=== PATIENT | female | born 1945 | race Caucasian/White ===

== ENCOUNTER → 2018-07-21 | Outpatient (CLI) | payer BC ==
[2015-08-10 08:32] VITALS: BP 60/66
[~2018-07-21] MED LIST: ACET325T9 PO; AMLO2.5T5 PO; ASPI-482 PO; ASPI325T11 PO; CALC-98 PO; CELE200C PO; DOCU100C28 PO; HYDR-2145 PO; LISI10TA2 PO; LORA0.5T PO; LYSI500T3 PO; METO-239 PO; NAPR220C4 PO; OMEG500C PO; OMEP20CA10 PO; ONDA4TAB7 PO; OXYC1TAB15 PO; SIMV20TA3 PO; TRAM50TA PO; [UNRECOGNIZED DRUG - OTHER]
--- NOTE | 2018-07-21 12:10 | KCIC ---
MRI Lumbar Spine without contrast History: Low back pain, right hip pain into the leg Technique: Multiplanar, multi sequential noncontrast MR imaging was performed of the lumbar spine. Comparison: None Findings: Lumbar vertebral body stature is overall maintained, small Schmorl's nodes at L4-5 and L3-L4 and inferiorly of L1. There is multilevel advanced degenerative disc disease L2-3 through L5-S1 and to lesser degree at L1-L2. There is fairly prominent L5-S1 endplate edema and minimally L2-3 through L4-5, no fluid in the intervertebral disc spaces. There is also other degenerative endplate change variably L2-3 through L5-S1. 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 There is mild dextroscoliosis centered near L3, very mild right lateral subluxation L3 relative L4. There is small hemangioma T12. There is other heterogeneity of marrow signal which may be a component of senescent change. There is a T2 hyperintense lesion of the visualized left kidney about 2 cm in size, statistically most likely a cyst. L1-L2: There is minimal disc osteophyte complex and superimposed broad shallow bulge, mild indentation upon the ventral thecal sac greater in the far left lateral recess. There is very mild narrowing of the far left lateral recess. There is mild buckling of the ligamentum flavum and facet degenerative change. There is mild narrowing of the left neural foramen, right neural foramen adequate. L2-L3: There is broad shallow disc osteophyte complex with mild indentation upon the ventral thecal sac greater in the left lateral recess without significant neural impingement or spinal stenosis. There is mild buckling of the ligamentum flavum and facet degenerative change. There is mild narrowing of the inferior left neural foramen, right neural foramen adequate. L3-L4: There is a broad shallow posterior disc osteophyte complex, indentation upon the ventral thecal sac somewhat greater in the far left lateral recess. There is mild prominence of posterior epidural fat. There is mild buckling of the ligamentum flavum and facet hypertrophic change. Combination of findings results in lvhf-cy-iojmtxof narrowing of the far left lateral recess. There is mild narrowing of the right neural foramen. There is moderate to severe narrowing of the left neural foramen, disc osteophyte complex contacting the undersurface of exiting left L3 nerve root in the neural foramen and proximal extraforaminal region. L4-L5: There is shallow disc osteophyte complex and superimposed bulge/broad protrusion, mild indentation upon the ventral thecal sac greater in the far right lateral recess. There is mild narrowing of the far right lateral recess with light contact of the descending right L5 nerve root. There is voaq-dv-otuuvhsl facet degenerative change on the right, minimally on the left. There is mild buckling of the ligamentum flavum. Left neural foramen is adequate. There is moderate narrowing of the right neural foramen by disc osteophyte complex and facet. L5-S1: There is broad protrusion/mostly contained extrusion greatest centrally and in the right lateral recess about 6 to 7 mm AP by 8 mm CC by about 13 mm transverse. There is indentation upon the ventral thecal sac greater in the right lateral recess, impingement of the descending right S1 nerve root in the right lateral recess with overall moderate narrowing of the far right lateral recess. There is mild facet degenerative change, minimal fluid in the facet articulations bilaterally. There is moderate to severe right greater than left neural foramina compromise. Impression: 1. There is right lateral recess stenosis at L5-S1 by protrusion/contained extrusion with impingement of the descending right S1 nerve root. There is gwng-oh-hkrwpswt left lateral recess stenosis as described at L3-4, mild right lateral recess stenosis L4-5. 2. There is multilevel advanced degenerative disc disease greatest L2-3 through L5-S1 with variable degenerative endplate change, also endplate edema greatest at L5-S1 more likely to be reactive/degenerative in etiology. 3. There is multilevel lumbar neural foramina compromise, more significant narrowing bilaterally at L5-S1 and on the left at L3-4 and to a somewhat lesser degree on the right at L4-L5. 4. There is mild lumbar dextroscoliosis. There is mild right lateral subluxation of L3 relative to L4. 5. There is likely cyst of the left kidney. Electronically signed by: Demond Estevez MD (07/21/2018 12:07 PM) [facility]
== END | disposition home or self-care (01) ==
LOC: KCIC MRI 10:40
PROVIDERS: ATTEND Psychiatry & Neurology Neurology with Special Qualifications in Child Neurology
DX: M48.07 Spinal stenosis, lumbosacral region (principal); M51.27 Other intervertebral disc displacement, lumbosacral region; M51.37 Other intervertebral disc degeneration, lumbosacral region; M53.2X6 Spinal instabilities, lumbar region; M41.86 Other forms of scoliosis, lumbar region; M25.78 Osteophyte, vertebrae; D18.09 Hemangioma of other sites
CPT/HCPCS: 72148

== ENCOUNTER → 2019-02-11 | Outpatient (CLI) | payer BC ==
[2015-08-10 08:32] VITALS: BP 60/66
[~2019-02-11] MED LIST changes: +OMEP-229 PO; -OMEP20CA10 PO; +SIMV20TA18 PO; -SIMV20TA3 PO
--- NOTE | 2019-02-11 12:38 | RAD ---
MR#: [id number] Date of Study: 02/11/2019 Ordering Physician: ARIAS SPEAR, Referring Physician: SHANNA SIBLEY Tech: CLAU Jasmine ARRT (Awais) (N) APPROVED REPORT Test Type: Exercise Stress Nurse/Tech: Ramírez DEL REAL Test Indications: SOB with exertion, Unstable Angina Cardiac History: HTN, Hyperlipidemia, See EMR. Medications: ASA 81mg QD, See EMR. Medical History: X-smoker=Quit 1979, See EMR. Resting ECG: SR w/ PVCs & PACs. Resting Heart Rate: 70 bpm Resting Blood Pressure: 138/71mmHg Pretest Chest Pain: No chest pain Nurse/Tech Notes Lungs CTA, Heart tones regular. Consent: The procedure was explained to the patient in lay terms. Informed consent was witnessed. Arnulfo eout was entered into [employer]. History and Stress Test performed by CLAU Jasmine ARRT (R) (N) Stress Symptoms Dyspnea; Pt denies any chest pain. POST EXERCISE Reason for Termination: Reached target heart rate Target HR: Yes Max HR: 143 bpm 117% of Maximum Predicted HR: 122 bpm Exercise duration: 03:16 min:sec, 1 Stage Exercise capacity: 4.6METs Max Blood Pressure: 182/64mmHg Blood Pressure response to exercise: Abnormal increase in blood pressure during stress. Heart Rate response to exercise: WNL Chest Pain: No. Arrhythmia: Yes. Few PVCs and PACs during stress and recovery. ST Change: No. INTERPRETATION Stress EKG Conclusion: No evidence of stress induced EKG changes to suggest ischemia. Imaging Protocol IMAGE PROTOCOL: Rest Tc-99m/stress Tc-99m 1 day Rest: Stress: Viability: Radiopharm.Tc99m SgrdajdsfYf98p Sestamibi Dose10.2mCi 33mCi Img Date 02/11/2019 02/11/2019 Inj-Img Mzff86tsi. 90min. Rest Admin Site:IV - Right AntecubitalAdministrator:CLAU Jasmine ARRT (R)(N) Stress Admin Site: IV - Right AntecubitalAdministrator: Marzena Rizvi, NMTCB, ARRT (R)(N) STRESS DATA End Diast. Vol.63.0mlAv. Heart Rate64.0bpm End Syst. Vol.9.0mlCO Index BSA0.0L/min Myocardial Twii813.0gEject. Paljskqd15.0% Stress Rates Pk. Fill Rate3.53EDV/secLVtime Pk. Fill 234.76msec Pk. Empty Rate3.82ESV/secLVtime Pk. Vahsw509.41msec 03/26 Pk. Fill0.92EDV/sec Stress Scores Regional WT0.00Summed WT4.00 Regional WM0.00Summed WM0.00 The rest and stress images show normal perfusion, normal contraction and thickening. LV Perf. Quant 17 Seg. SSS0.00 17 Seg. SRS1.00 17 Seg. SDS0.00 Stress Defect Extent (% LAD)0.00Rest Defect Extent (% LAD)0.00Rev. Defect Extent (% LAD)0.00 Stress Defect Extent (% LCX) 0.00Rest Defect Extent (% LCX)0.00Rev. Defect Extent (% LCX)0.00 Stress Defect Extent (% RCA)0.00Rest Defect Extent (% RCA)0.00Rev. Defect Extent (% RCA)0.00 Stress Defect Extent (% MARGARET)0.00Rest Defect Extent (% MARGARET)0.00Rev. Defect Extent (% MARGARET)0.00 Other Information Quality:Average Risk Assessment: Low Risk Conclusion 1. No evidence of EKG changes with stress testing. 2. Normal perfusion at stress/rest. 3. Low risk study. 4. EF > 60%. Signed by : Arias Spear, Electronically Approved : 02/11/2019 12:38:09
--- NOTE | 2019-03-05 09:40 | CARD ---
MR#: [id number] Account#: Accession#: Date of Study: 02/11/2019 Ordering Physician: Maren: Kareen Pelayo APPROVED REPORT EXAM: Two-dimensional and M-mode echocardiogram with Doppler and color Doppler. Other Information Quality : AverageHR: 62bpm INDICATION Unstable Angina 2D DIMENSIONS RVDd2.2 (2.9-3.5cm)Left Atrium(2D)3.3 (1.6-4.0cm) IVSd1.3 (0.7-1.1cm)Aortic Root(2D)2.3 (2.0-3.7cm) LVDd3.9 (3.9-5.9cm)LVOT Diameter1.8 (1.8-2.4cm) PWd0.8 (0.7-1.1cm)LVDs1.9 (2.5-4.0cm) FS (%) 53.6 %SV57.7 ml LVEF(%)85.0 (>50%) Aortic Valve AoV Peak Hugh.364.7cm/sAoV VTI94.0cm AO Peak GR.53.2mmHgLVOT VTI 34.46cm AO Mean GR.30mmHgAI P 1/2 Mmsp31os Mitral Valve MV E Iotqjtkn99.2cm/sMV E Peak Gr.7mmHg MV DECEL [id number] A Tdbbrfef456.0cm/s MV E Mean Gr.3mmHgE/A Ratio0.8 TDI Lateral E' P. V7.14cm/sMedial E' P. V5.02cm/s E/Lateral E'13.8E/Medial E'19.6 Tricuspid Valve TR P. Ebqwzvtu071he/sRAP IKCWXHHY9bvLx TR Peak Gr.38ioPoIXWN55ovVa Pulmonary Vein S1 Thiqqpde60.9cm/sS2 Nygygmmn66.06cm/s D2 Wpnrypvv18.1cm/s LEFT VENTRICLE The left ventricle is normal size. There is mild septal left ventricular hypertrophy. The left ventri cular systolic function is normal and the ejection fraction is within normal range. The Ejection Frac tion is 60-65%. There is normal LV segmental wall motion. Transmitral Doppler flow pattern is Grade I -abnormal relaxation pattern. RIGHT VENTRICLE The right ventricle is normal size. The right ventricular systolic function is normal. ATRIA The left atrium is mildly dilated. The right atrium is moderately dilated. The interatrial septum is intact with no evidence for an atrial septal defect or patent foramen ovale as noted on 2-D or Dopple r imaging. AORTIC VALVE The aortic valve is heavily calcified. Doppler and Color Flow revealed mild to moderate aortic regurg itation. There is moderate valvular aortic stenosis with a Peak Gradient of 53 mmHg and a mean gradie nt of 30 mmHg. MITRAL VALVE The mitral valve is thickened but opens well. There is no evidence of mitral valve prolapse. There is no mitral valve stenosis. Doppler and Color-flow revealed mild mitral regurgitation. TRICUSPID VALVE The tricuspid valve is normal in structure and function. Doppler and Color Flow revealed moderate tri cuspid regurgitation with an estimated PAP of 39 mmHg. There is no tricuspid valve stenosis. PULMONIC VALVE Doppler and Color Flow revealed mild pulmonic valvular regurgitation. There is no pulmonic valvular s tenosis. GREAT VESSELS The aortic root is normal in size. The ascending aorta is normal in size. The IVC is normal in size a nd collapses >50% with inspiration. PERICARDIAL EFFUSION There is no pleural effusion. There is no evidence of significant pericardial effusion. Critical Notification Critical Value: No <Conclusion> The left ventricular systolic function is normal and the ejection fraction is within normal range. Th e Ejection Fraction is 60-65%. There is normal LV segmental wall motion. There is moderate valvular aortic stenosis with a Peak Gradient of 53 mmHg and a mean gradient of 30 mmHg. Signed by : Feliberto Spear, Electronically Approved : 02/11/2019 09:47:38
== END | disposition home or self-care (01) ==
LOC: NM 08:06
PROVIDERS: ATTEND Internal Medicine Cardiovascular Disease
DX: I08.8 Other rheumatic multiple valve diseases (principal); I70.0 Atherosclerosis of aorta; I11.9 Hypertensive heart disease without heart failure; I20.0 Unstable angina; E78.5 Hyperlipidemia, unspecified; Z87.891 Personal history of nicotine dependence; Z79.01 Long term (current) use of anticoagulants
CPT/HCPCS: 78452; 93017; 93306; A9500